=== PATIENT | male | born 1950 | race Caucasian/White ===

== ENCOUNTER → 2024-04-25 14:53 | Outpatient (REF) | payer MEDICARE, OTHER, SELFPAY | LOC: RAD 14:53 | PROVIDERS: ATTENDING PHYSICIAN Podiatrist Primary Podiatric Medicine | DX: M25.572 Pain in left ankle and joints of left foot (principal) | CPT/HCPCS: 73610 ==

== ENCOUNTER 2024-09-19 20:20 | Emergency (ER) | payer MEDICARE, OTHER, SELFPAY ==
[2024-09-19 20:24] VITALS: BP 171/83
--- NOTE | 2024-09-19 22:14 | ED.GENMED ---
History of Present Illness
General
Chief Complaint: Back Pain
Source: patient
Exam Limitations: none
Time Seen by Provider: 09/19/24 22:01
History of Present Illness
History of Present Illness:
74yoM with a history of arthritis and neuropathy presenting for evaluation of back pain. Patient has been having ongoing back pain for quite some time. He previously received a cortisone injection in the back about 2 years ago. He woke up today
with pain in his right lower back. The pain has been gradually worsening throughout the day. Pain radiates down into his posterior leg. Pain is described as a burning sensation. Pain is worse with certain positions. He tried IcyHot, heat, and a
massage gun without relief. He denies any new paresthesias, weakness, incontinence, abdominal pain, fevers. No prior back surgeries. He denies any trauma or inciting incident.
Past History
Past History
ED Past Medical History: Other (Chronic back pain, constipation, arthritis,)
ED Past Surgical History: Orthopedic and Other (Craniotomy)
Social History
Tobacco: Non-smoker
Personal:
Living: with family
Employment: Employed
Phy Exam
Physical Exam
Physical Exam:
Appears uncomfortable due to pain, nontoxic
General Physical Exam
General Presentation: well appearing
General Skin: warm and dry
General Habitus: normal
General Mental: alert
ENT Exam
ENT Exam: normocephalic
Pulmonary Exam
Pulmonary Exam: no respiratory distress
Neurological Exam
Neurological Exam: alert and other (5/5 strength in bilateral lower extremities)
[place] Coma Scale
Eye Opening: Spontaneous
Verbal Response: Oriented
Motor Response: Obeys Commands
GCS Total Score: 15
Musculoskeletal Exam
Musculoskeletal Exam: other (+Tenderness in the R paraspinal lumbar region. No midline spinous process tenderness. No skin changes.)
Skin Exam
Skin Exam: normal color and warm/dry
Psychiatric Exam
Psychiatric Exam: normal mood/affect
Course
Orders/Labs/Results
Orders:
Orders
09/19/24 22:12
Acetaminophen [Tylenol] 1,000 mg PO NOW STA
HYDROmorphone [Dilaudid] 1 mg IM NOW STA
Ketorolac [Toradol] 30 mg IM NOW STA
CR Lumbar Spine Comp Min 4 Vw* Urgent
Comment:
Reason For Exam: low back pain
09/19/24 23:27
Prednisone [Deltasone] 50 mg PO NOW STA
Vital Signs
Initial and Last Documented VS:
Initial Vital Signs
Temp Pulse Resp BP Pulse Ox
98.0 F 82 18 171/83 97
09/19/24 20:24 09/19/24 20:24 09/19/24 20:24 09/19/24 20:24 09/19/24 20:24
Last Documented Vital Signs
Temp Pulse Resp BP Pulse Ox
98.0 F 82 18 171/83 97
09/19/24 20:24 09/19/24 20:24 09/19/24 20:24 09/19/24 20:24 09/19/24 20:24
MDM/Problems Addressed
Differential Diagnosis Includes:
74yoM here with burning R lower back pain radiating down posterior R leg. Pain worse with certain positions. Denies trauma. No red flags in history including no saddle anesthesia, incontinence, fevers. Patient hypertensive with otherwise normal
vital signs. He appears uncomfortable due to pain but is nontoxic appearing. There is tenderness to the right paraspinal lumbar region on exam. Equal strength noted in bilateral lower extremities. Differential diagnosis includes but is not
limited to: Sciatica, lumbar radiculopathy, muscular strain, less likely fracture
Initial ED plan: Check lumbar spine x-rays. IM Dilaudid, Toradol, and Tylenol ordered for pain.
*Critical Care Note
Total Time (30-74mins, 75-104mins- exclusive of procedures): Not Applicable
Update Note
Update Note:
X-ray shows severe degenerative disc disease without acute fracture. Patient feeling much better on reassessment and is requesting to be urged. Clinical presentation consistent with sciatica. Patient prescribed a course of prednisone. He has an
appointment scheduled with [facility] orthopedics next week. ED return precautions discussed. He was discharged in stable condition.
ED Attending Note
-
Portions of this chart may have been created with voice recognition software.� Occasional wrong word or��sound alike� substitutions may have occurred due to the inherent limitations of voice recognition software.
Discharge Plan
Departure
Patient Disposition: Home (Routine Discharge)
Date of Disposition: 09/19/24
Time of Disposition: 23:27
Patient with high blood pressure during this ER visit?: Yes
Discharge Problem:
Sciatica, right side
Instructions: Sciatica (DC)
Prescriptions:
New
prednisone 50 mg tablet
50 mg PO DAILY Qty: 4 0RF
No Action
celecoxib 200 MG capsule
200 mg PO DAILY
acetaminophen [Tylenol Extra Strength] 500 MG tablet
100 mg PO Q6HPRN PRN (Reason: pain) Qty: 0 0RF
Patient Comments:
probiotics
Rx Instructions:
max 4000 mg in 24h
diclofenac sodium 75 MG tablet,delayed release (DR/EC)
75 mg PO BID Qty: 10 0RF
Referrals:
Abhay Thibodeaux MD [Family Provider] -
Activity Restrictions/Additional Instructions:
Take prednisone as prescribed. Take Tylenol 650mg every 6 hours as needed for pain. Use lidocaine patches daily (12 hours on, 12 hours off).
Please follow-up with your family doctor and orthopedics.
Return to the ER with any new or worsening symptoms.
Interventions
Interventions:
*Risk Screen - Suicide Last Done: 09/19/24 20:22
*General Assessment Last Done: 09/19/24 21:42
*Neglect/Abuse Screening Last Done: 09/19/24 20:22
*ED COVID-19 Vaccine History Last Done: 09/19/24 20:24
*Nursing Disposition Last Done: 09/19/24 23:50
ED-Musculoskeletal Assessment Last Done: 09/19/24 21:42
Discharge Date and Time
Discharge Date/Time: 09/20/24 00:52
Print Language: DIVEHI
[2024-09-19] MEDS: TYLENOL 1000 MG PO (22:25)
[2024-09-19] MEDS: DILAUDID 1 MG IM (22:25)
[2024-09-19] MEDS: TORADOL 30 MG IM (22:26)
[2024-09-19] MEDS: DELTASONE 50 MG PO (23:49)
== END 2024-09-20 00:52 | disposition home or self-care (01) ==
LOC: EMR 20:20
PROVIDERS: EMERGENCY PHYSICIAN Emergency Medicine; FAMILY PHYSICIAN Family Medicine
DX: M54.41 Lumbago with sciatica, right side (principal); M51.379 Other intervertebral disc degeneration, lumbosacral region without mention of lumbar back pain or lower extremity pain
CPT/HCPCS: 96372; 99284; 72110

== ENCOUNTER 2025-09-13 04:15 | Inpatient (IN) | payer MEDICARE, OTHER, SELFPAY ==
[2025-09-13] VITALS (10 sets, daily range): BP systolic 113–160; BP diastolic 72–84; BMI 30.3
[2025-09-13] MEDS: DUONEB 3 ML INH ×7 (00:48→19:10)
[2025-09-13] MEDS: DELTASONE 50 MG PO (00:48)
--- NOTE | 2025-09-13 01:18 | ED.GENMED ---
History of Present Illness
General
Chief Complaint: Cold/Flu/URI Symptoms
Source: patient
Exam Limitations: none
Time Seen by Provider: 09/12/25 23:27
Nursing documentation reviewed up to this point in time: agreed with
History of Present Illness
History of Present Illness:
75-year-old male with a history of smoking, history of pseudotumor
No documented history of COPD presents for 1 week of URI symptoms with dry cough, some chills, sore throat. He was using Tylenol. His last dose is 9 PM tonight. Around 10 PM he started having some wheezing and shortness of breath which was new.
He feels better now but is still occasionally coughing and feels some tightness like chest congestion. He is not having any chest pain. He has not had a fever today that he knows of.
Other family members are also ill. He did not test for flu or COVID
Past History
Past History
ED Past Medical History: Other (Chronic back pain, constipation, arthritis,)
ED Past Surgical History: Orthopedic and Other (Craniotomy)
Social History
Tobacco: Smoker
Personal:
Living: with family
Employment: Employed
Review of Systems
Review of Systems
Allergies reviewed?: Yes
All Other Systems: Not applicable
Phy Exam
Physical Exam
Physical Exam:
GENERAL: Alert , in no apparent distress
EYE: pupils equal and reactive
NECK: Supple
ENT: b/l TM s clear, pharynx erythematous but no tonsillar hypertrophy or exudates
CARDIAC: Regular rate and rhythm, no edema
LUNGS: Faint end expiratory wheezing throughout, frequent cough which is dry, no tachypnea
ABDOMEN: Soft, without focal tenderness, no r/g, no cvat, normal bowel sounds
NEUROLOGICAL: Alert and oriented, no focal neuro deficits
SKIN: Warm and dry, skin intact.
MUSCULOSKELETAL: No edema, well perfused.
PSYCH: Normal and appropriate interaction.
Course
Orders/Labs/Results
Orders:
Orders
09/12/25 22:34
CXR2 [CR Chest - 2 Views ] Urgent
Comment:
Reason For Exam: cough
09/13/25 00:30
Ipratropium/Albuterol Sulfate [Duoneb] 3 ml INH R NOW STA
Prednisone [Deltasone] 50 mg PO NOW STA
09/13/25 01:16
COVID-19 Antigen Urgent
Source: Nasal Swab
Influenza A+B Rapid Molecular Urgent
CARRIE Source: Nasal Swab
Specimen Description:
09/13/25 01:47
Ipratropium/Albuterol Sulfate [Duoneb] 3 ml INH R NOW STA
09/13/25 02:16
Rx Mdi /daily Initial [RESP] Urgent
09/13/25 02:31
Ipratropium/Albuterol Sulfate [Duoneb] 3 ml INH R NOW STA
09/13/25 02:32
Electrocardiogram (*1) Urgent
Reason for Study: Shortness of Breath
EKG- Treatment ONCE
09/13/25 02:46
Basic Metabolic Panel Urgent
Comment: NO K
Complete Blood Count/With Diff Urgent
NT-proBNP Urgent
09/13/25 04:08
Admit/Transfer Patient As Directed
Co-Sign Provider:
Level of Care: Inpatient admission
Assign to:: Medical/Surgical
Physician / Group: Oli
Diagnosis: AE-COPD
Reason for Hospitalization: AE-COPD
Expected length of stay greater than two midnights?: Yes
ELOS- Estimated Length of Stay in days: 2
I certify the patient meets the requirements for IP care: Yes
PRN Pain Medication Management As Directed
May give lesser potent ordered pain med per pt: Yes
preference::
Protocol:: Medication orders for pain may be administered in a
manner that supports deferring to patient preference
when the pt is:
- Requesting an ordered lesser potent pain medication.
Least to most potent pain medications are defined
as: acetaminophen < NSAID < tramadol < opioids
(morphine, oxycodone, hydromorphone).
- Requesting a lesser dose of the same medication IF
ORDERED.
- Requesting a less intrusive route of administration
if both routes are prescribed by the provider (PO <
IV).
09/13/25 04:09
Code Status As Directed
Resuscitation Status: Full Code
Abnormal Lab Results
09/13/25
02:46
Abs Immat Gran (auto) 0.1 H 10^3/uL
(0-0.05)
Absolute Neuts (auto) 7.2 H 10^3/uL
(1.4-6.5)
Absolute Monos (auto) 0.7 H 10^3/uL
(0.1-0.6)
Neutrophils % 78.1 H %
(42.2-75.2)
Lymphocytes % 12.7 L %
(20.5-51.1)
Sodium 131 L mmol/L
(135-145)
Glucose 117 H mg/dl
(70-99)
09/13/25 02:46
09/13/25 02:46
Vital Signs
Initial and Last Documented VS:
Initial Vital Signs
Temp Pulse Resp Pulse Ox
36.4 C 83 16 95
09/12/25 22:31 09/12/25 22:31 09/12/25 22:31 09/12/25 22:31
Last Documented Vital Signs
Temp Pulse Resp BP Pulse Ox
36.7 C 69 18 131/72 90
09/13/25 00:38 09/13/25 00:38 09/13/25 00:38 09/13/25 01:57 09/13/25 02:21
MDM/Problems Addressed
Differential Diagnosis Includes:
COPD, bronchitis, influenza, COVID, pneumonia
MDM/Problems Addressed:
75-year-old male smoker presents for 1 week of URI symptoms with subjective chills, sore throat, dry cough, spastic cough with some wheezing today that brought him into the hospital. He says that the sore throat has dissipated. He has been taking
Tylenol. He has no history of diagnosed COPD and is not using inhalers. On exam the patient is afebrile, well-appearing, speaking in full sentences, has end expiratory wheezing throughout and was slightly diminished with a spastic cough.
His chest x-ray independently reviewed showed no signs of pneumonia. Will test for flu and COVID, DuoNeb and prednisone. Anticipate discharge with albuterol inhaler, steroids and possibly antibiotics for bronchitis smoker
Reassessed after second DuoNeb, patient more tachypneic, wheezing is more prominent, sat drops to 89% on room air at rest. He was able to ambulate but was more dyspneic but not more hypoxic. Patient's irritated about staying overnight but he has
never had COPD/reactive airway bronchitis before, and is feeling moderately short of breath. Given this I will order a third neb and consider admission to the hospital for nebs, steroids, pulm
*Pulse Oximetry
SaO2: 95
Oxygen Mode of Delivery: Room air
Patient hypoxic: yes (89)
*Critical Care Note
Total Time (30-74mins, 75-104mins- exclusive of procedures): Not Applicable
ED Attending Note
-
Portions of this chart may have been created with voice recognition software.� Occasional wrong word or��sound alike� substitutions may have occurred due to the inherent limitations of voice recognition software.
Discharge Plan
Departure
Patient Disposition: Admit
Date of Disposition: 09/13/25
Time of Disposition: 02:32
Admit to: Med/Surg
Presentation/result/management discussed w/ accepting MD/DO: Hospitalist
Condition: Fair
Covid-19: Not Applicable
Discharge Problem:
Bronchitis, Hypoxia
Interventions
Interventions:
*Neglect/Abuse Screening Last Done: 09/12/25 22:31
[facility] Fall Risk Assessment Tool Last Done: 09/12/25 22:28
*Risk Screen - Suicide (C-SSRS) Last Done: 09/12/25 22:31
ED- Pulmonary Assessment Last Done: 09/12/25 23:44
[2025-09-13 01:50] LABS: COVID-19 Antigen Negative (Negative)
[2025-09-13 03:04] LABS: Hematocrit 46.3 % (39.0-52.0); Hemoglobin 15.6 g/dL (13.0-18.0); Mean Corp Hgb Conc. 33.7 g/dL (33.0-37.0); Mean Corpuscular Volume 90.3 fL (80.0-94.0); Nucleated Red Blood Cells % 0 % (-); Platelet Count 248 10^3/uL (130-400); Red Cell Dist. Width 12.3 % (11.5-14.5)
[2025-09-13 03:35] LABS: Blood Urea Nitrogen 18 mg/dl (9-20); Calcium 8.8 mg/dl (8.4-10.2); Carbon Dioxide 22 mmol/L (22-30); Chloride 101 mmol/L (98-107); Glucose 117 mg/dl (70-99); Sodium 131 mmol/L (135-145); eGFR > 60.00
--- NOTE | 2025-09-13 04:10 | HPS.HSE ---
Family Physician
-
Family Physician: Christian Cage
Chief Complaint
-
SOB
History of Present Illness
Patient is a 75y M with PMH significant for spinal stenosis who presents to ED complaining of cough and SOB. Patient states that he developed a cough and cold symptoms about 1 week ago. Today he was signifciantly more short of breath with chest
tightness and his family encouraged him to present to the ED for evaluation.
Patient reports cough has been 'tight' and non-productive. He has been taking Mucinex, DayQuil, NyQuil with no significant improvement in his symptoms.
He has felt subjective fevers at home. No chills. No GI or symptoms.
Patient has no formal diagnosis of COPD and does not use any inhalers, etc.
He is a long-term smoker and continues to smoke about 1/2 ppd.
Medical History
Past Medical History
Past Medical History: Reports Other
Additional Past Medical History:
Spinal Stenosis
L Foot Drop
DJD
Chronic Pain
Past Surgical History: Reports Other
Additional Past Surgical History:
Right MARY ELLEN
Right Foot Surgery
Social History
Tobacco: Smoker (Current every day smoker. 1/2 ppd at present - significant decrease over the past 1-2 years. > 40 pack years total)
Alcohol: Daily (1 glass joanna daily.)
Family History
Family History: Other (Longevity)
Allergies / Home Medications
Allergies reflects when Allergies were last updated in [employer].
Home Medications with original date entered in [employer]
Allergy/Medication List:
Allergies
Allergy/AdvReac Type Severity Reaction Status Date / Time
Penicillins Allergy Hives Verified 09/12/25 22:30
Home Medications
atorvastatin 20 mg tablet 20 mg PO HS 09/13/25
bupropion HCl 150 mg tablet,12 hr sustained-release 150 mg PO BID 09/13/25
celecoxib 200 mg capsule 20 mg PO DAILY 09/13/25
gabapentin 300 mg capsule 300 mg PO BID 09/13/25
Review of Systems
-
History Source: Patient
A 12 point ROS was completed and negative except as noted: Yes
Constitutional: Reports Fever and Fatigue; Denies Chills
EENT: Denies Sore Throat
Respiratory: Reports Cough and Trouble Breathing; Denies Hemoptysis
Cardiac: Denies Chest Pain or Palpitations
Abdomen/GI: Denies Abdominal Pain, Nausea, Vomiting or Diarrhea
: Denies Dysuria or Frequency
Musculoskeletal: Denies Joint Pain or Edema
Neurological: Denies Dizzy or Headache
Physical Exam
Vital Signs
Vital Signs
Temp Pulse Resp BP Pulse Ox
98.1 F 69 18 131/72 90
09/13/25 00:38 09/13/25 00:38 09/13/25 00:38 09/13/25 01:57 09/13/25 02:21
Physical Exam
General: Other (75y M in no acute distress.)
HEENT: Moist mucous membranes and PERRLA
Respiratory: Other (Decreased BS throughout with some expiratory wheezes. No rales.)
Cardiac: S1/S2 and Regular Rhythm
GI: Soft, Non Tender, Non Distended and Normal Bowel Sounds
Musculoskeletal: No Clubbing, No Cyanosis and No Edema
Neuro: AO x 3
Laboratory Results
-
09/13/25 02:46
09/13/25 02:46
Laboratory Results
Total Bilirubin Cancelled 09/13/25 02:46
AST Cancelled 09/13/25 02:46
ALT Cancelled 09/13/25 02:46
Alkaline Phosphatase Cancelled 09/13/25 02:46
Impression/Plan
-
A/P: Patient is a 75y M with PMH significant for spinal stenosis who presents to ED complaininig of cough and SOB.
URI - Likely Viral
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
- Admit for further evaluation and treatment.
- Long-term / ongoing smoker with tightness, wheezing, decreased BS, etc.
- Suspect COPD with acute exacerbation due to respiratory infection.
- Continue steroids and wean as able.
- Nebs ATC and PRN. Mucolytics, O2 support, etc.
- Follow for clinical improvement.
- Patient encouraged to see Pulm as an outpatient for formal evaluation once his acute symptoms are resolved.
- Encouraged ongoing efforts at smoking cessation.
Spinal Stenosis
Left Foot Drop
Chronic Pain
- Stable. Continue current pain control regimen.
- Patient requires L foot brace for ambulation - this is at home.
DVT Prophylaxis: Lovenox
Code Status: Full
[2025-09-13 07:15] LABS: Hematocrit 39.8 % (39.0-52.0); Hemoglobin 13.3 g/dL (13.0-18.0); Mean Corp Hgb Conc. 33.4 g/dL (33.0-37.0); Mean Corpuscular Volume 90.2 fL (80.0-94.0); Platelet Count 190 10^3/uL (130-400); Red Cell Dist. Width 12.4 % (11.5-14.5)
[2025-09-13] MEDS: MUCINEX 1200 MG PO ×2 (08:44→21:26)
[2025-09-13] MEDS: NEURONTIN 300 MG PO ×2 (08:44→21:26)
[2025-09-13] MEDS: CELEBREX 200 MG PO (08:58)
[2025-09-13 10:22] LABS: Blood Urea Nitrogen 15 mg/dl (9-20); Calcium 8.9 mg/dl (8.4-10.2); Carbon Dioxide 24 mmol/L (22-30); Chloride 102 mmol/L (98-107); Glucose 133 mg/dl (70-99); Sodium 133 mmol/L (135-145); eGFR > 60.00
[2025-09-13] MEDS: WELLBUTRIN SR (12 hour sustained release) 150 MG PO ×2 (10:29→21:27)
--- NOTE | 2025-09-13 10:45 | W.PN.HOSP.TC ---
Today's Communication/Plan
-
see A/P
Assessment / Plan
Assessment / Plan
HPI: 75 yo M with PMH significant for spinal stenosis who presented to ED complaining of cough and SOB that started about 1 week ago. Arturo was significantly more short of breath with chest tightness and his family encouraged him to present to the ED
for evaluation.
Patient reports cough has been 'tight' and non-productive. He has been taking Mucinex, DayQuil, NyQuil with no significant improvement in his symptoms.
He has felt subjective fevers at home. No chills. No GI or symptoms.
Patient has no formal diagnosis of COPD and does not use any inhalers, etc.
He is a long-term smoker and continues to smoke about 1/2 ppd.
A/P:
# URI - Likely Viral
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
Long-term / ongoing smoker with tightness, wheezing, decreased BS, etc.
COVID/Flu negative
Suspect COPD with acute exacerbation due to respiratory infection.
s/p Prednisone 50 mg, then Decadron 4 mg IV Q12H, cont with persistent significant wheezing
Nebs ATC and PRN. Mucolytics, vest therapy.
Patient encouraged to see Pulm as an outpatient for formal evaluation once his acute symptoms are resolved.
Counselled on smoking cessation. Offered nicotine patch, pt declined stating previous skin irritation with nicotine patch
# Spinal Stenosis
# Left Foot Drop
# Chronic Pain
Stable. Continue current pain control regimen.
Patient requires L foot brace for ambulation - this is at home.
DVT Prophylaxis: Lovenox
Code Status: Full
Anticipated Discharge: Within 24 hours
Subjective/Interval History
-
Date of Service: September 13, 2025
Objective Data
-
Labs:
Laboratory Results
09/13/25 09/13/25 09/13/25
02:46 06:23 09:31
WBC 9.2 6.1
Hgb 15.6 13.3
Hct 46.3 39.8
Plt Count 248 190 D
Sodium 131 L Cancelled 133 L
Potassium Cancelled
Chloride 101 Cancelled 102
Carbon Dioxide 22 Cancelled 24
BUN 18 Cancelled 15
Creatinine 0.7 Cancelled 0.6 L
Glucose 117 H Cancelled 133 H
Calcium 8.8 Cancelled 8.9
Total Bilirubin Cancelled
AST Cancelled
ALT Cancelled
Alkaline Phosphatase Cancelled
Vital Signs:
Vital Signs
Temp Pulse Resp BP Pulse Ox
36.7 C 68 20 137/84 94
09/13/25 00:38 09/13/25 08:03 09/13/25 08:03 09/13/25 06:25 09/13/25 08:03
Review of Systems
-
History Source: Patient
All other systems: Reviewed and negative
Respiratory: Reports Cough (improved )
Physical Exam
-
General: Well Developed, Well Nourished, No Apparent Distress, Comfortable, Conversant and Obese; Negative Respiratory Distress
HEENT: Normocephalic, Atraumatic, Nose Appears Normal and Ears Appear Normal; Negative Oxygen
Respiratory: Clear to Auscultation, Wheezes and Non Labored Respirations; Negative Accessory Resp Muscle Use
Cardiac: Regular Rhythm and S1/S2
GI: Soft, Nontender, Nondistended and Normal Bowel Sounds
Skin: Warm and Dry
Neuro: Awake, Alert, Oriented and AO x 3
Psych: Calm and Intact Judgement/Insight
Data Reviewed
-
Diagnostic Radiology: Report Reviewed by me
Labs: Labs Reviewed by me
--- NOTE | 2025-09-13 16:08 | PTCARENOTE ---
received pt from ED, ambulated into room w/o assistance, VS obtained, pt oriented to room. Bed in lowest position, call torres within reach, no c/o pain or significant SOB. Follow plan of care
[2025-09-13] MEDS: TYLENOL 650 MG PO (16:13)
[2025-09-13] MEDS: LOVENOX 40 MG SC (17:54)
[2025-09-13] MEDS: DECADRON 4 MG IV (21:25)
[2025-09-13] MEDS: LIPITOR 20 MG PO (21:27)
[2025-09-13] MEDS: BENADRYL 25 MG PO (21:54)
[2025-09-13] MEDS: NICODERM TRANSDERMAL 21 MG TRANSDERM (21:54)
[2025-09-13] MEDS: PINK BISMUTH 525 MG PO (23:30)
[2025-09-14 06:26] LABS: Hematocrit 45.6 % (39.0-52.0); Hemoglobin 15.3 g/dL (13.0-18.0); Mean Corp Hgb Conc. 33.6 g/dL (33.0-37.0); Mean Corpuscular Volume 89.2 fL (80.0-94.0); Nucleated Red Blood Cells % 0 % (-); Platelet Count 254 10^3/uL (130-400); Red Cell Dist. Width 12.3 % (11.5-14.5)
[2025-09-14] MEDS: DUONEB 3 ML INH ×2 (07:08→11:17)
[2025-09-14 07:13] LABS: Blood Urea Nitrogen 17 mg/dl (9-20); Calcium 9.1 mg/dl (8.4-10.2); Carbon Dioxide 26 mmol/L (22-30); Chloride 101 mmol/L (98-107); Estimated Creatinine Clearance 91 ml/min; Glucose 117 mg/dl (70-99); Magnesium 1.9 mg/dl (1.6-2.3); Potassium 4.9 mmol/L (3.5-5.1); Sodium 133 mmol/L (135-145); eGFR > 60.00
[2025-09-14 08:25] VITALS: BP 132/76
[2025-09-14] MEDS: NEURONTIN 300 MG PO (09:15)
[2025-09-14] MEDS: DECADRON 4 MG IV (09:15)
[2025-09-14] MEDS: CELEBREX 200 MG PO (09:15)
[2025-09-14] MEDS: WELLBUTRIN SR (12 hour sustained release) 150 MG PO (09:15)
[2025-09-14] MEDS: MUCINEX 1200 MG PO (09:15)
--- NOTE | 2025-09-14 11:02 | W.PN.HOSP.TC ---
Addendum entered and electronically signed by Carlee Waldrop MD 09/14/25 12:55:
# Hyponatremia
Original Note:
Today's Communication/Plan
-
DC home today
Assessment / Plan
Assessment / Plan
HPI: 75 yo M with PMH significant for spinal stenosis who presented to ED complaining of cough and SOB that started about 1 week ago. Arturo was significantly more short of breath with chest tightness and his family encouraged him to present to the ED
for evaluation.
Patient reports cough has been 'tight' and non-productive. He has been taking Mucinex, DayQuil, NyQuil with no significant improvement in his symptoms.
He has felt subjective fevers at home. No chills. No GI or symptoms.
Patient has no formal diagnosis of COPD and does not use any inhalers, etc.
He is a long-term smoker and continues to smoke about 1/2 ppd.
A/P:
# URI - Likely Viral
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
Long-term / ongoing smoker with tightness, wheezing, decreased BS, etc.
COVID/Flu negative
Suspect COPD with acute exacerbation due to respiratory infection.
s/p Prednisone 50 mg -> Decadron 4 mg IV Q12H -> prednisone 40 mg x5 days (as wheezing has significantly improved/resolved)
While in the hospital, Nebs ATC and PRN. Mucolytics, vest therapy.
Can cont Mucinex/Robitussin liquid (per pt request) and Tessalon PRN outpt
Patient encouraged to see Pulm as an outpatient for formal evaluation once his acute symptoms are resolved.
Counselled on smoking cessation.
Pt now amenable for nicotine patch and also requesting nicotine gum- will eprescibe both to pharmacy
# Spinal Stenosis
# Left Foot Drop
# Chronic Pain
Stable. Continue current pain control regimen.
Patient requires L foot brace for ambulation - this is at home.
DVT Prophylaxis: Lovenox
Code Status: Full
DW CM
Anticipated Discharge: Today
Subjective/Interval History
-
Date of Service: September 14, 2025
Objective Data
-
Labs:
Laboratory Results
09/14/25
06:06
WBC 12.5 H
Hgb 15.3
Hct 45.6
Plt Count 254 D
Sodium 133 L
Potassium 4.9
Chloride 101
Carbon Dioxide 26
BUN 17
Creatinine 0.8
Glucose 117 H
Calcium 9.1
Vital Signs:
Vital Signs
Temp Pulse Resp BP Pulse Ox
36.8 C 87 20 132/76 94
09/14/25 08:25 09/14/25 08:25 09/14/25 08:25 09/14/25 08:25 09/14/25 08:25
I&O
09/13/25 09/14/25 09/15/25
06:59 06:59 06:59
Intake Total 720 / 720
Balance 720 / 720
Review of Systems
-
History Source: Patient
All other systems: Reviewed and negative
Respiratory: Reports Cough (improved )
Physical Exam
-
General: Well Developed, Well Nourished, No Apparent Distress, Comfortable, Conversant and Obese; Negative Respiratory Distress
HEENT: Normocephalic, Atraumatic, Nose Appears Normal and Ears Appear Normal; Negative Oxygen
Respiratory: Clear to Auscultation and Non Labored Respirations; Negative Wheezes (much resolved ) or Accessory Resp Muscle Use
Cardiac: Regular Rhythm and S1/S2
GI: Soft, Nontender, Nondistended and Normal Bowel Sounds
Skin: Warm and Dry
Neuro: Awake, Alert, Oriented and AO x 3
Psych: Calm and Intact Judgement/Insight
Data Reviewed
-
Diagnostic Radiology: Report Reviewed by me
Labs: Labs Reviewed by me
--- NOTE | 2025-09-14 11:11 | PN.CDI ---
CDI
- -
CDI:
Physician Documentation Request
Admit Date: 09/13/25 04:15
Dear Doctor Benjie,
Please review the following and provide your response in the progress notes.
Clinical Indicators:
Laboratory Tests
09/13/25 09/13/25 09/14/25
02:46 09:31 06:06
Sodium 131 L 133 L 133 L
Based on the above and your clinical assessment, please clarify in the progress notes, the appropriate diagnosis, if significant, that supports the above abnormalities and additional evaluation, monitoring and/or treatment rendered:
Hyponatremia
Abnormal lab value, clinically insignificant
Other(please specify)
Use of terms such as suspected, likely, concern for, or probable (associated with a specific diagnosis that is being evaluated, monitored, or treated as if it exists) are acceptable and can be coded in the inpatient setting, when documented at the
time of discharge.
Thank you,
Basia Tolentino RN BSN CCDS
CDI Specialist
Please contact via tiger text
Please use your independent medical judgment in providing your response.
--- NOTE | 2025-09-14 11:56 | CM ---
Patient seen at bedside
IA completed
discharge today - IMM explained & signed
Lives with and son in 2 story home, 0 [address]UL[address]ER, flight to bed/bath
PLOF: Independent, wears a brace on LLE
Denies DME
Denies VN/has had outpatient therapy in past
PCP: Dr. Cage
Pharmacy: [facility]
PLAN: Home, no needs
son to transport
--- NOTE | 2025-09-14 14:31 | W.DCSUMMARY ---
Discharge Summary
Discharge Data
Date of Admission: 09/13/25
Date of Discharge: 09/14/25
Total time spent discharging patient (in min): 40
-
Pending Results: No
Hospital Course
Principal Diagnosis:
Likely viral URI
Acute COPD exacerbation
Chronic Diagnoses:�
Spinal Stenosis
Left Foot Drop
Chronic Pain
Consultations:�
None
Procedures:�
None
Clinical course:�
This is a 75 year old male with PMH as stated above, who presented with cough and SOB that started about 1 week [employer]NA[employer] MS[employer].
He has been a long-term smoker and continues to smoke about 1/2 ppd.
Problem 1:
Likely viral URI with acute COPD exacerbation.
His COVID/Flu tests were negative.
He received IV Decadron 4 mg IV Q12H while in the hospital for wheezing, and was discharged with prednisone 40 mg x5 days (as his wheezing significantly improved/resolved).
He can continue with Mucinex/Robitussin liquid (per pt request) and Tessalon PRN outpatient.
He has received extensive counselling on smoking cessation, and he can continue with nicotine patch and gum to help with his nicotine craving.
As for the rest of his medical problems, they were stable during his hospital stay.
Discharge Plan
-
Patient Disposition: Home (Routine Discharge)
Discharge Diagnosis/Procedures: Likely Viral URI with acute exacerbation of COPD,
Cigarette smoking and nicotine dependence
Condition: Fair
Diet: As tolerated, Low Fat and Low Cholesterol
Activity: As tolerated
Driving Restrictions: As prior to admission
Referrals:
Roel Cage MD [Family Provider, Internal Medicine] - in less than 1 week
Additional Discharge Medication Instructions: For COPD:
Continue prednisone 40 mg daily got 5 days
Continue Azithromycin 500 mg daily for 3 days
You may use Mucinex (Guaifenesin) and Tessalon (benzonatate) for congestion and cough suppression respectively
Continue nicotine replacement therapy (patch and gum) for smoking cessation
Prescriptions:
New
prednisone 20 mg tablet
40 mg PO DAILY 5 Days Qty: 10 0RF
benzonatate 200 mg capsule
200 mg PO BID PRN (Reason: Cough) Qty: 10 0RF
guaifenesin 100 mg/5 mL liquid
200 mg PO Q6H PRN (Reason: congestion) Qty: 1000 0RF
nicotine 14 mg/24 hr patch 24 hour
1 patch transdermal DAILY Qty: 28 0RF
nicotine (polacrilex) 2 mg gum
2 mg buccal Q8H PRN (Reason: nicotine cravings) Qty: 50 0RF
azithromycin 500 mg tablet
500 mg PO DAILY 3 Days Qty: 3 0RF
Continued
celecoxib 200 mg capsule
20 mg PO DAILY
bupropion HCl 150 mg tablet sustained-release 12 hr
150 mg PO BID
atorvastatin 20 mg tablet
20 mg PO HS
gabapentin 300 mg capsule
300 mg PO BID
Discharge Orders:
Discharge Patient (As Directed); Ordered 09/14/25
Ordered By: Carlee Waldrop
Discharge Date and Time
Print Language: IRISH
[2025-09-14 14:38] VITALS: BP 155/90
--- NOTE | 2025-09-14 14:43 | PTCARENOTE ---
Assumed care of patient at 1330, assessment remains the same, patient with no current complaints, discharge order in. Vitals taken, IV taken out, and discharge packet reviewed. plan of care ongoing.
== END 2025-09-14 15:02 | disposition home or self-care (01) | DRG 191 ==
LOC: 3 WEST ACU 04:15
PROVIDERS: Physician Assistant; ADMITTING PHYSICIAN Hospitalist; ATTENDING PHYSICIAN Internal Medicine; EMERGENCY PHYSICIAN Emergency Medicine; FAMILY PHYSICIAN Internal Medicine
DX: J44.1 Chronic obstructive pulmonary disease with (acute) exacerbation (principal); E87.1 Hypo-osmolality and hyponatremia; J06.9 Acute upper respiratory infection, unspecified; G89.29 Other chronic pain; K59.00 Constipation, unspecified; M19.90 Unspecified osteoarthritis, unspecified site; M54.9 Dorsalgia, unspecified; F17.210 Nicotine dependence, cigarettes, uncomplicated; R09.02 Hypoxemia; M21.372 Foot drop, left foot; Z88.0 Allergy status to penicillin; Z11.52 Encounter for screening for COVID-19
CPT/HCPCS: 71046; 80048; 83735; 83880; 85025; 85027; 87502; 87811; 93005; 94640; 94669

== ENCOUNTER 2025-09-21 10:47 | Emergency (ER) | payer MEDICARE, OTHER, SELFPAY ==
[2025-09-21 11:02] VITALS: BP 165/100
[2025-09-21 13:36] LABS: Hematocrit 49.1 % (39.0-52.0); Hemoglobin 16.4 g/dL (13.0-18.0); Mean Corp Hgb Conc. 33.4 g/dL (33.0-37.0); Mean Corpuscular Volume 90.3 fL (80.0-94.0); Nucleated Red Blood Cells % 0 % (-); Platelet Count 284 10^3/uL (130-400); Red Cell Dist. Width 12.3 % (11.5-14.5)
[2025-09-21 13:38] VITALS: BP 140/83; BMI 27.1
[2025-09-21 13:40] VITALS: BP 140/83
[2025-09-21 13:51] LABS: ALT (SGPT) 50 U/L (0-50); AST (SGOT) 31 U/L (17-59); Albumin 3.8 g/dl (3.5-5.0); Alkaline Phosphatase 87 U/L (38-126); Blood Urea Nitrogen 22 mg/dl (9-20); Calcium 9.0 mg/dl (8.4-10.2); Carbon Dioxide 30 mmol/L (22-30); Chloride 100 mmol/L (98-107); Estimated Creatinine Clearance 89 ml/min; Glucose 101 mg/dl (70-99); Potassium 4.8 mmol/L (3.5-5.1); Sodium 133 mmol/L (135-145); Total Protein 6.4 g/dl (6.3-8.2); eGFR > 60.00
--- NOTE | 2025-09-21 14:20 | ED.GENMED ---
History of Present Illness
General
Chief Complaint: Swelling
Source: patient
Time Seen by Provider: 09/21/25 12:39
History of Present Illness
History of Present Illness:
Note:
CHIEF COMPLAINT(S)
Severe bilateral ankle pain.
HISTORY OF PRESENT ILLNESS
The patient is a 75-year-old male with a history of arthritis in the feet, who presents with severe bilateral ankle pain that began suddenly yesterday morning. He reported that the pain worsened progressively throughout the day, rendering him
immobile. The patient described the pain as 'unbelievable' and noted that it was isolated to the ankles, without involvement of the knees, calves, or other areas. He was recently discharged from the hospital following a respiratory infection and was
prescribed prednisone (40mg daily) and an unspecified antibiotic for three days. Notably, the patient mentioned that both ankles are affected simultaneously, which he finds unusual considering his previous experience with arthritis. Overnight
management with elevation and ice provided significant relief, though standing remains uncomfortable. The patient denied smoking for the past week, though he has a history of cigarette use.
MEDICATIONS
- Prednisone 40mg daily for five days.
- Unspecified antibiotic for three days.
SOCIAL HISTORY
The patient has a history of cigarette smoking but reports cessation approximately one week ago.
REVIEW OF SYSTEMS
- Musculoskeletal: Reports severe pain in both ankles without swelling, effusion, or skin discoloration. The range of motion is intact but painful when weight-bearing.
PHYSICAL EXAM
General: Alert, no acute distress.
Skin: Warm, dry.
Head: Normocephalic, atraumatic.
Neck: Supple, trachea midline.
Eye Ears, nose, mouth and throat: Oral mucosa moist.
Cardiovascular: Normal peripheral perfusion, no edema.
Respiratory: Respirations are non-labored.
Gastrointestinal : Abdomen nondistended.
Back: Normal range of motion, normal alignment.
Musculoskeletal: No effusions, joint swelling, or skin discoloration in ankles; full range of motion noted.
Neurological: Alert and oriented to person, place, time, and situation, no focal neurological deficit observed.
Psychiatric: Cooperative, appropriate mood and affect.
PROBLEM LIST
Acute Problems:
- Severe bilateral ankle pain.
Chronic Problems:
- Previous respiratory infection.
PLAN
- Review current medications and laboratory results from today to rule out medication-related causes.
- Monitor symptoms and continue using ice and elevation for symptom relief.
- Consider further diagnostic workup to identify the underlying inflammatory cause if symptoms persist or worsen.
DIFFERENTIAL DIAGNOSIS
The Differential Diagnosis includes, in no particular order and is not limited to:
1. Reactive arthritis.
2. Gout.
3. Pseudogout.
4. Rheumatoid arthritis.
5. Septic arthritis.
6. Osteoarthritis exacerbation.
7. Vascular-related inflammation.
8. Medication-induced arthralgia.
9. Lyme disease.
10. Bursitis.
Disposition:
SUMMARY OF ENCOUNTER
The patient, a 75-year-old male, presented with severe bilateral ankle pain that improved with ice and elevation. He was recently discharged from the hospital after being treated with prednisone (prednisolone) and azithromycin for a respiratory
infection. The physical examination showed no joint effusion or signs of septic arthritis. Laboratory tests included a normal CBC. After evaluating the situation and considering possible medication-induced or post-viral reactive arthritis, it was
determined that the patient could continue using NSAIDs (nonsteroidal anti-inflammatory drugs), ice, and elevation at home. There were no clinical concerns for gout or acute arterial complications.
DISPOSITION
Discharge.
ASSESSMENT
Bilateral ankle pain potentially secondary to recently prescribed medications or a viral illness.
PLAN
Continue NSAIDs, ice, and elevation for pain management. Monitor symptoms and return if they worsen or do not improve.
INDEPENDENT REVIEW OF LABS AND INTERPRETATION OF TESTS
My independent review of CBC is normal.
MEDICATION RECONCILIATION
Patient was on prednisone and azithromycin post-hospital discharge. Recommended continuation of NSAIDs at home.
MEDICAL DECISION MAKING
- Number and Complexity of Problems Addressed: Chronic conditions affecting care include possible medication-induced arthralgia or reactive arthritis due to recent medications or viral illness.
- Data:
Category 1: My independent review of CBC is normal.
Category 3: Evaluation revealed no concerns for septic arthritis, acute arterial complications, or gout.
- Risk: Prescription medication was considered, but ultimately, the patient was advised to continue using NSAIDs at home due to improvement with conservative measures.
DIAGNOSIS
- Medication-induced arthralgia, suspected (ICD-10: T88.7)
- Ankle pain, bilateral (ICD-10: M25.579)
Past History
Past History
ED Past Medical History: Other (Chronic back pain, constipation, arthritis,)
ED Past Surgical History: Orthopedic and Other (Craniotomy)
Social History
Tobacco: Smoker
Personal:
Living: with family
Employment: Employed
Phy Exam
Physical Exam
Physical Exam:
.
Scores
Heart Failure Risk
Heart Failure Risk Score: Not Applicable
Course
Orders/Labs/Results
Orders:
Orders
09/21/25 12:41
CR Chest - 2 Views Urgent
Comment:
Reason For Exam: LE edema
09/21/25 13:21
Complete Blood Count/With Diff Urgent
Comprehensive Metabolic Panel Urgent
Abnormal Lab Results
09/21/25
13:21
WBC 11.4 H 10^3/uL
(4.8-10.8)
Abs Immat Gran (auto) 0.1 H 10^3/uL
(0-0.05)
Absolute Neuts (auto) 7.0 H 10^3/uL
(1.4-6.5)
Absolute Monos (auto) 1.1 H 10^3/uL
(0.1-0.6)
Immature Gran % 1.1 H %
(0-0.5)
Monocytes % 9.7 H %
(1.7-9.3)
Sodium 133 L mmol/L
(135-145)
BUN 22 H mg/dl
(9-20)
Glucose 101 H mg/dl
(70-99)
09/21/25 13:21
09/21/25 13:21
Vital Signs
Initial and Last Documented VS:
Initial Vital Signs
Temp Pulse Resp BP Pulse Ox
98.5 F 67 18 165/100 98
09/21/25 11:02 09/21/25 11:02 09/21/25 11:02 09/21/25 11:02 09/21/25 11:02
Last Documented Vital Signs
Temp Pulse Resp BP Pulse Ox
98.5 F 59 20 140/83 96
09/21/25 13:38 09/21/25 13:38 09/21/25 13:38 09/21/25 13:40 09/21/25 14:22
*Pulse Oximetry
SaO2: 96
Oxygen Mode of Delivery: Room air
Patient hypoxic: no
*Critical Care Note
Total Time (30-74mins, 75-104mins- exclusive of procedures): Not Applicable
ED Attending Note
-
Portions of this chart may have been created with voice recognition software.� Occasional wrong word or��sound alike� substitutions may have occurred due to the inherent limitations of voice recognition software.
Discharge Plan
Departure
Patient Disposition: Home (Routine Discharge)
Date of Disposition: 09/21/25
Time of Disposition: 14:32
Patient with high blood pressure during this ER visit?: Yes
Discharge Problem:
Polyarthralgia
Instructions: BLOOD PRESSURE
Prescriptions:
No Action
celecoxib 200 mg capsule
200 mg PO DAILY
bupropion HCl 150 mg tablet sustained-release 12 hr
150 mg PO BID
atorvastatin 20 mg tablet
20 mg PO HS
gabapentin 300 mg capsule
300 mg PO BID
prednisone 20 mg tablet
40 mg PO DAILY 5 Days Qty: 10 0RF
benzonatate 200 mg capsule
200 mg PO BID PRN (Reason: Cough) Qty: 10 0RF
guaifenesin 100 mg/5 mL liquid
200 mg PO Q6H PRN (Reason: congestion) Qty: 1000 0RF
nicotine 14 mg/24 hr patch 24 hour
1 patch transdermal DAILY Qty: 28 0RF
nicotine (polacrilex) 2 mg gum
2 mg buccal Q8H PRN (Reason: nicotine cravings) Qty: 50 0RF
azithromycin 500 mg tablet
500 mg PO DAILY 3 Days Qty: 3 0RF
Referrals:
Roel Cage MD [Family Provider, Internal Medicine]
Activity Restrictions/Additional Instructions:
Suspected reactive arthritis. Please continue current medications. Please ice your ankles and elevate. Use your anti-inflammatory/pain medication as needed. Consider ibuprofen as needed. Return immediately for swelling, fevers, worsening pain
or any other concerns.
Interventions
Interventions:
*General Assessment Last Done: 09/21/25 13:38
*Neglect/Abuse Screening Last Done: 09/21/25 11:02
*ED COVID-19 Vaccine History Last Done: 09/21/25 11:02
*ED Influenza Vaccine History Last Done: 09/21/25 11:02
[facility] Fall Risk Assessment Tool Last Done: 09/21/25 13:38
*Risk Screen - Suicide (C-SSRS) Last Done: 09/21/25 13:38
*Nursing Disposition Last Done: 09/21/25 15:01
ED- Cardiac Assessment Last Done: 09/21/25 13:38
ED- Pulmonary Assessment Last Done: 09/21/25 13:38
ED-Skin Assessment Last Done: 09/21/25 13:38
Discharge Date and Time
Discharge Date/Time: 09/21/25 15:05
Print Language: SLOVAK
== END 2025-09-21 15:05 | disposition home or self-care (01) ==
LOC: EMR 10:47
PROVIDERS: EMERGENCY PHYSICIAN Emergency Medicine; FAMILY PHYSICIAN Internal Medicine
DX: M25.572 Pain in left ankle and joints of left foot (principal); M25.571 Pain in right ankle and joints of right foot; M19.071 Primary osteoarthritis, right ankle and foot; M19.072 Primary osteoarthritis, left ankle and foot; M54.9 Dorsalgia, unspecified; G89.29 Other chronic pain; F17.210 Nicotine dependence, cigarettes, uncomplicated
CPT/HCPCS: 99284; 71046; 80053; 85025